=== PATIENT | female | born 1980 | race Asian ===

== ENCOUNTER 2017-03-06 14:37 | Outpatient (CLI) | payer OTHER ==
[2017-03-06 15:25] LABS: PLATELET COUNT 179 K/uL (152-353)
[2017-03-06 15:58] LABS: POTASSIUM 3.8 mmol/L (3.6-5.2); SODIUM 137 mmol/L (136-145)
== END 2017-03-06 15:40 | disposition home or self-care (01) ==
LOC: LAB 14:37
PROVIDERS: Nurse Practitioner Family
DX: Z00.00 Encounter for general adult medical examination without abnormal findings (principal); I10 Essential (primary) hypertension; R53.83 Other fatigue; R63.4 Abnormal weight loss; E55.9 Vitamin D deficiency, unspecified
CPT/HCPCS: 80053; 80061; 82306; 82607; 83036; 84439; 84443; 85027

== ENCOUNTER 2017-03-20 12:54 | Outpatient (CLI) | payer OTHER | END 2017-03-20 19:38 | disposition home or self-care (01) | LOC: US 12:54 | DX: E05.90 Thyrotoxicosis, unspecified without thyrotoxic crisis or storm (principal) ==

== ENCOUNTER 2017-06-15 12:40 | Outpatient (CLI) | payer OTHER ==
[2017-06-15 13:07] LABS: PLATELET COUNT 183 K/uL (152-353)
[2017-06-15 13:13] LABS: SODIUM 134 mmol/L (136-145)
== END 2017-06-15 19:09 | disposition home or self-care (01) ==
LOC: LAB 12:40
PROVIDERS: Nurse Practitioner Family
DX: Z00.00 Encounter for general adult medical examination without abnormal findings (principal); I10 Essential (primary) hypertension; R53.83 Other fatigue; E05.80 Other thyrotoxicosis without thyrotoxic crisis or storm; E55.9 Vitamin D deficiency, unspecified
CPT/HCPCS: 80053; 80061; 83036; 84436; 84443; 85027

== ENCOUNTER 2019-09-22 14:25 | Emergency (ER) | payer OTHER ==
[~2019-09-22] VITALS: Ht 167.6 cm; Wt 73.9 kg
[2019-09-22] MEDS ORDERED: HYZAAR1 TA1 PO (14:43)
[2019-09-22] MEDS ORDERED: VIVLODEX5 MG PO (14:43)
[2019-09-22 15:47] VITALS: BP 150/101; TEMP 99
== END 2019-09-22 15:47 | disposition home or self-care (01) ==
LOC: ED 14:25
DX: M54.5 Low back pain (principal); R10.32 Left lower quadrant pain
CPT/HCPCS: 81000; 81025; 99283

== ENCOUNTER 2020-12-06 10:07 | Outpatient (CLI) | payer OTHER ==
[~2020-12-06 10:07] MED LIST: HYZAAR1 TA1 PO; VIVLODEX5 MG PO
== END 2020-12-06 21:36 | disposition home or self-care (01) ==
LOC: RAD 10:07
PROVIDERS: ATTEND Nurse Practitioner Family
DX: M25.50 Pain in unspecified joint (principal)

== ENCOUNTER 2021-01-27 14:43 | Outpatient (CLI) | payer OTHER | END 2021-01-27 22:30 | disposition home or self-care (01) | LOC: RAD 14:43 | PROVIDERS: ATTEND Nurse Practitioner Family | DX: R10.9 Unspecified abdominal pain (principal) ==